=== PATIENT | female | born 2000 | race African-American/Black ===

== ENCOUNTER 2020-04-22 21:38 | Emergency (ER) | payer OTHER ==
[~2020-04-22] VITALS: Ht 167.6 cm; Wt 77.1 kg
[2020-04-22 22:03] LABS: BILIRUBIN 1+ (Negative); BLOOD 3+ (Negative); CLARITY Turbid (Clear); COLOR Red (Yellow); GLUCOSE Negative (Negative); KETONE Negative (Negative); LEUKO ESTERASE 3+ (Negative); NITRITE Positive (Negative); PH 5.5 (4.5-8.0); SPECIFIC GRAVITY >= 1.030 (1.001-1.030)
[2020-04-22 22:13] LABS: RBC TNTC rbc/hpf (0-2); WBC TNTC wbc/hpf (0-5)
[2020-04-22] MEDS ORDERED: PYRIDIUM200 M1 PO (22:42)
[2020-04-22] MEDS ORDERED: CEFUROXIME AXE500 MG PO (22:42)
== END 2020-04-22 23:00 | disposition home or self-care (01) ==
LOC: ED 21:38
PROVIDERS: Emergency Medicine
DX: N39.0 Urinary tract infection, site not specified (principal)